=== PATIENT | male | born 1980 | race African-American/Black ===

== ENCOUNTER 2021-02-21 08:30 | Emergency (ER) | payer OTHER ==
[2021-02-21 09:51] LABS: #Eosinphils 0.2 10x3/uL (0.0-0.5); #Monocytes 0.4 10x3/uL (0.0-1.1); #Neutrophils 2.5 10x3/uL (1.5-8.4); %Basophils 0.4 % (0.0-2.0); %Eosinophils 3.1 % (0.0-6.0); %Lymphocytes 43.9 % (18.0-47.0); %Monocytes 7.6 % (0.0-10.0); %Neutrophils 44.5 % (40.0-75.0); Hemoglobin 11.5 g/dL (13.5-17.5); Mean Corpuscular HGB CONC 32.7 g/dL (32.0-36.0); Mean Corpuscular Hemoglobin 27.4 pg (27.0-33.0); Mean Corpuscular Volume 83.8 fl (81.2-95.1); Mean Platelet Volume 8.4 fl (7.4-10.4); Platelet Count 329 10x3/uL (150-450); RBC Distribution Width 15.8 % (11.5-14.5); White Blood Cell (WBC) Count 5.5 10x3/uL (3.5-10.5)
[2021-02-21 10:15] LABS: ALT (SGPT) 39 U/L (8-55); AST (SGOT) 57 U/L (5-34); Albumin 3.7 g/dL (3.5-5.0); Alkaline Phosphatase 123 U/L (40-110); Anion Gap 16 mmol/L (10-20); BUN (Urea Nitrogen) 12 mg/dL (8.9-20.6); Bilirubin, Total 0.4 mg/dL (0.2-1.2); Calc. Creatinine Clearance 0 mL/min (70-130); Calcium 9.4 mg/dL (7.8-10.44); Carbon Dioxide 24 mmol/L (22-29); Chloride 102 mmol/L (98-107); Globulin 5.2 g/dL (2.4-3.5); Glucose 92 mg/dL (70-105); Potassium 3.8 mmol/L (3.5-5.1); Protein, Total 8.9 g/dL (6.0-8.3); Sodium 138 mmol/L (136-145)
== END 2021-02-21 13:10 | disposition home or self-care (01) ==
LOC: CSHERS 08:30
DX: J18.9 Pneumonia, unspecified organism (principal); R59.0 Localized enlarged lymph nodes; I10 Essential (primary) hypertension
CPT/HCPCS: 71045; 71275; 80053; 83880; 84484; 85025; 93005

== ENCOUNTER 2022-09-15 21:59 | Emergency (ER) | payer OTHER ==
[~2022-09-15 21:59] MED LIST: Iopamidol 370 76% 100 ML VIAL ONE
[2022-09-15] MEDS ORDERED: Acetaminophen 500 MG TAB ONE (22:45)
[2022-09-15 23:12] LABS: #Eosinphils 0.1 10x3/uL (0.0-0.5); #Monocytes 0.7 10x3/uL (0.0-1.1); #Neutrophils 3.2 10x3/uL (1.5-8.4); %Basophils 0.6 % (0.0-2.0); %Eosinophils 2.2 % (0.0-6.0); %Lymphocytes 25.1 % (18.0-47.0); %Monocytes 12.2 % (0.0-10.0); %Neutrophils 59.2 % (40.0-75.0); Hemoglobin 13.6 g/dL (13.5-17.5); Mean Corpuscular HGB CONC 33.7 g/dL (32.0-36.0); Mean Corpuscular Hemoglobin 29.2 pg (27.0-33.0); Mean Corpuscular Volume 86.7 fl (81.2-95.1); Mean Platelet Volume 8.6 fl (7.4-10.4); Platelet Count 268 10x3/uL (150-450); Red Blood Cell (RBC) Count 4.65 10x6/uL (4.32-5.72); White Blood Cell (WBC) Count 5.4 10x3/uL (3.5-10.5)
[2022-09-15 23:23] LABS: ALT (SGPT) 69 U/L (8-55); AST (SGOT) 81 U/L (5-34); Albumin 4.2 g/dL (3.5-5.0); Alkaline Phosphatase 84 U/L (40-110); Anion Gap 14 mmol/L (10-20); BUN (Urea Nitrogen) 9 mg/dL (8.9-20.6); Bilirubin, Total 0.4 mg/dL (0.2-1.2); Calc. Creatinine Clearance 0 mL/min (70-130); Calcium 9.4 mg/dL (7.8-10.44); Carbon Dioxide 26 mmol/L (22-29); Chloride 102 mmol/L (98-107); Estimated GFR 81; Glucose 154 mg/dL (70-105); Potassium 3.5 mmol/L (3.5-5.1); Protein, Total 8.2 g/dL (6.0-8.3); Sodium 138 mmol/L (136-145)
[2022-09-15 23:47] LABS: SARS-CoV-2 NAA Rapid Test Not Detected (NotDetected)
== END 2022-09-16 02:19 | disposition short-term general hospital (02) ==
LOC: CSHERS 21:59
DX: S06.5X0A Traumatic subdural hemorrhage without loss of consciousness, initial encounter (principal); J10.1 Influenza due to other identified influenza virus with other respiratory manifestations; R55 Syncope and collapse; I10 Essential (primary) hypertension; Z86.16 Personal history of COVID-19; Z20.822 Contact with and (suspected) exposure to COVID-19; W07.XXXA Fall from chair, initial encounter; Y99.0 Civilian activity done for income or pay
CPT/HCPCS: 70450; 71045; 71275; 80053; 83605; 84484; 85025; 93005; 96360; 96361; Q9967

== ENCOUNTER 2024-06-21 12:00 | Emergency (ER) | payer OTHER ==
[2024-06-21] MEDS ORDERED: Ketorolac Tromethamine 30 MG (1 mL) VIAL ONE ×2 (13:07→13:09)
== END 2024-06-21 13:17 | disposition home or self-care (01) ==
LOC: CSHERS 12:00
DX: M10.9 Gout, unspecified (principal); I10 Essential (primary) hypertension
CPT/HCPCS: 96372; 99283; J1885

== ENCOUNTER 2025-06-11 18:18 | Emergency (ER) | payer OTHER ==
[2025-06-11 19:54] LABS: #Basophils Less than 0.03 10x3/uL (0.0-0.2); #Eosinophils Less than 0.03 10x3/uL (0.0-0.5); #Monocytes 0.50 10x3/uL (0.0-1.1); #Neutrophils 5.10 10x3/uL (1.5-8.4); %Basophils 0.1 % (0.0-2.0); %Eosinophils 0.0 % (0.0-6.0); %Lymphocytes 23.2 % (18.0-47.0); %Monocytes 6.8 % (0.0-10.0); %Neutrophils 69.1 % (40.0-75.0); Hematocrit 44.6 % (38.8-50.0); Hemoglobin 14.6 g/dL (13.5-17.5); Mean Corpuscular Hemoglobin 28.2 pg (27.0-33.0); Mean Corpuscular Volume 86.1 fL (81.2-95.1); Platelet Count 219 10x3/uL (150-450); Red Blood Cell (RBC) Count 5.18 10x6/uL (4.32-5.72); White Blood Cell (WBC) Count 7.38 10x3/uL (3.5-10.5)
[2025-06-11] MEDS ORDERED: diphenhydrAMINE 50 MG/ML VIAL ONE (20:01)
[2025-06-11] MEDS ORDERED: cefTRIAXone (ROCEPHIN) 2 GM VIAL ONE (20:01)
[2025-06-11] MEDS ORDERED: Prochlorperazine 10 MG/2 ML VIAL ONE (20:01)
[2025-06-11] MEDS ORDERED: Ketorolac Tromethamine 30 MG (1 mL) VIAL ONE (20:01)
[2025-06-11 20:09] LABS: ALT (SGPT) 58 U/L (Less than 45); AST (SGOT) 89 U/L (11-34); Albumin 4.3 g/dL (3.1-4.5); Alkaline Phosphatase 67 U/L (40-110); Anion Gap 14 mmol/L (10-20); BUN (Urea Nitrogen) 16 mg/dL (8.9-20.6); Bilirubin, Total 0.4 mg/dL (0.3-1.2); CK (CPK) 3725 U/L (30-200); Calc. Creatinine Clearance 0 mL/min (70-130); Calcium 9.5 mg/dL (7.8-10.44); Carbon Dioxide 28 mmol/L (22-29); Chloride 96 mmol/L (98-107); Globulin 4.3 g/dL (2.4-3.5); Glucose 128 mg/dL (70-105); Potassium 3.2 mmol/L (3.5-5.1); Sodium 135 mmol/L (136-145)
[2025-06-11 23:00] LABS: Anion Gap 16 mmol/L (10-20); BUN (Urea Nitrogen) 17 mg/dL (8.9-20.6); CK (CPK) 3062 U/L (30-200); Calc. Creatinine Clearance 0 mL/min (70-130); Calcium 8.1 mg/dL (7.8-10.44); Carbon Dioxide 21 mmol/L (22-29); Chloride 102 mmol/L (98-107); Glucose 113 mg/dL (70-105); Potassium 3.0 mmol/L (3.5-5.1); Sodium 136 mmol/L (136-145)
[2025-06-11 23:29] LABS: Glucose, Urine (Dipstick) Normal (Negative); Leukocyte 100 (Negative); Protein, Urine (Dipstick) 30 mg/dl (Neg-Trace); Specific Gravity, Urine 1.010 (1.005-1.030)
[2025-06-11 23:45] LABS: Bacteria/HPF None Seen HPF (None Seen); CAUTI Indications for Culture Fever or rigors; RBC/HPF 0-3 HPF (0-3); WBC/HPF 0-3 HPF (0-3)
[2025-06-11 23:46] LABS: Urine Culture Reflex No No
== END 2025-06-11 23:27 | disposition home or self-care (01) ==
LOC: CSHERS 18:18
DX: M62.82 Rhabdomyolysis (principal); I10 Essential (primary) hypertension
CPT/HCPCS: 36415; 70450; 80053; 81001; 82550; 83605; 85025; 87428; 93005; 93010; 96361; 96365; 96367; 96375; J0696; J0780; J1200; J1885